=== PATIENT | male | born 2000 | race Two or more races ===

== ENCOUNTER → 2022-04-27 09:59 | Outpatient (BNVA) | payer OTHER, SELFPAY | PROVIDERS: PCP Pediatrics; Visit Provider Physician Assistant Medical | DX: S61.012A Laceration without foreign body of left thumb without damage to nail, initial encounter (principal); W45.8XXA Other foreign body or object entering through skin, initial encounter | CPT/HCPCS: 99203 ==

== ENCOUNTER → 2022-05-05 08:47 | Outpatient (BNVA) | payer OTHER, SELFPAY | PROVIDERS: PCP Pediatrics; Visit Provider Internal Medicine | DX: Z48.02 Encounter for removal of sutures (principal); S61.012D Laceration without foreign body of left thumb without damage to nail, subsequent encounter; W45.8XXD Other foreign body or object entering through skin, subsequent encounter | CPT/HCPCS: 99212; 99213 ==

== ENCOUNTER 2023-11-27 12:11 | Outpatient (REF) | payer OTHER, SELFPAY ==
--- NOTE | ~2023-11-27 | XR_ITS ---
EXAMINATION: XR RIBS, RIGHT CLINICAL INFORMATION: Right-sided rib pain. Intermittent, chronic rib pain. COMPARISON: None available. TECHNIQUE: PA view the chest as well as 3 views of the right ribs. FINDINGS: Lungs are clear. No consolidation, pneumothorax, or pleural effusion. The cardiomediastinal silhouette and pulmonary vasculature are normal. Osseous structures are unremarkable. Ribs are intact. No fractures are identified. XR/XR ribs RT min 3V w CXR1V IMPRESSION: Unremarkable examination.
== END 2023-11-27 12:12 | disposition home or self-care (01) ==
LOC: HO.HHCX 12:11
PROVIDERS: Visit Provider Nurse Practitioner Primary Care
DX: R07.81 Pleurodynia (principal)
CPT/HCPCS: 71101

== ENCOUNTER 2024-10-21 16:20 | Outpatient (REF) | payer OTHER, SELFPAY ==
--- OUTSIDE RECORDS SUMMARY | 2024-10-21 18:48 | XMS_ITS | Encounter Summary ---
Author Organization [facility] Address [address] [facility] 7t [place] [address] Care Team Providers Care Resource Manager Name Role Phone Chacha Rosas Primary Care Provider [phone] Encounter Details Date Type Department Care Team (Late Contact Info) Description 03/15/2023 Abstract [facility] [address] [place] [address] Nikolas Isabel, JOSE MANUEL [address] [place] [address] Social History Tobacco Use Types Packs/Day Years Used Date Smoking Tobacco: Never Smokeless Tobacco: Never Alcohol Use Standard Drinks/Week Comments Never 0 (1 standard drink = 0.6 oz pur e alcohol) Sex and Gender Information Value Date Recorded Sex Assigned at Male 05/01/2022 10:29 AM EDT Legal Sex Male 10:29 AM EDT Gender Identity Male 05/01/2022 10:29 AM EDT Sexual Orientation Straight 05/01/2022 10 :29 AM EDT documented as of this encounter Plan of Treatment Upcoming Encounters Date Type Department Care Team (Late Contact Info) Description 11/06/2024 4:00 PM EDT Immunization [facility] [address] [place] [address] documented as of this encounter Visit Diagnoses Not on filedocumented in this encounter Care Teams Resource Manager Relationship Specialty Start Date End Date Chacha Rosas ANP [address] [place] [address] PCP - General Family Medicine 01/06/22 documented as of this encounter
--- OUTSIDE RECORDS SUMMARY | 2024-10-21 18:48 | XMS_ITS | Encounter Summary ---
Author Organization [employer] Address [address] [facility] [address] 7[address] [place] [address] Care Team Providers Care Sound Recordist Name Role Phone Ralph Chacha SAAVEDRA Primary Care Provider [phone] Encounter Details Date Type Department Care Team (Latest Contact Info) Description 10/21/2024 Travel Social History Tobacco Use Types Packs/Day Years Used Date Smoking Tobacco: Never Smokeless Tobacco: Never Alcohol Use Standard Drinks/Week Comments Never 0 (1 standard drink = 0.6 oz pur e alcohol) Depression Answer Date Recorded Patient Health Questionnaire-9 Score 0 10/21/2024 Patient Health Questionnaire-9 Score 0 10/21/2024 Last PHQ-9: Questionnaire Data Not on file 0 10/21/2024 Housing Stability Answer Date Recorded What is your housing situation today? I have niecy hebert 05/14/[address] you li ve. Do you have problems with any of the following? None of the above 05/14/2024 Food Insecurity Answer Date Recorded Within the past 12 months, y ou worried that your food would run out before you got money to buy more: Never True 05/14/2024 Within the past 12 months,th e food you bought just didn't last and you didn't have enough money to get more: Never True Transportation Answer Date Recorded In the past 12 months, has l ack of transportation kept you from medical appts, meetings, work or from getting things needed for daily living? No 05/14/2024 Utilities Answer Date Recorded In the past 12 months, has t he electric, gas, oil or water company threatened to shut off services in your home? No 05/14/2024 Depression Answer Date Recorded Patient Health Questionnaire-2 Score 0 10/21/2024 Internet Access Answer Date Recorded Internet Access Q1 Yes 05/14/2024 Internet Access Q2 Not on file 05/14/2024 Sex and Gender Information Value Date Recorded Sex Assigned at Male 05/01/2022 10:29 AM EDT Legal Sex Male 10:29 AM EDT Gender Identity Male 05/01/2022 10:29 AM EDT Sexual Orientation Straight 05/01/2022 10 :29 AM EDT documented as of this encounter Plan of Treatment Upcoming Encounters Date Type Department Care Team (Late st Contact Info) Description 11/06/2024 4:00 PM EDT Immunization [facility] [address] [place] [address] documented as of this encounter Visit Diagnoses Not on filedocumented in this encounter Additional Health Concerns Assessment Noted Time PHQ-9 Depression Total Score: 0 10/22/19 25 2:19 PM EDT documented as of this encounter Care Teams Sound Recordist Relationship Specialty Start Date End Date Chacha Rosas ANP [address] [place] [address] PCP - General Family Medicine 01/06/22 documented as of this encounter
--- OUTSIDE RECORDS SUMMARY | 2024-10-21 18:48 | XMS_ITS | Clinical Summary ---
Author Organization [employer] Address [address] [facility] 7t [place] [address] Care Team Providers Care Diabetes Specialist Name Role Phone Ralph Chacha SAAVEDRA Primary Care Provider [phone] Allergies Active Allergy Reactions Criticality Noted Date Comments Shellfish Allergy 01/11/2023 Medications chlorhexidine (Peridex) 0.12 % solutionIndica tions:Pericoro nitis Fill irrigation syringe and irrigate third molars after meals. Spit, do not swallow. 473 mL 01/12/20 23 Active Sod Fluoride-Potas sium Nitrate 1.1-5 % pasteIndicatio ns:Dental caries [place] teeth for 2 minutes, morning and night. Spit, do not rinse. Do not eat or drink anything for 30 minutes following brushing. 112 g 3 02/02/20 23 Active EPINEPHrine (Epipen) 0.3 MG/0.3ML injection syringeIndicat ions:Shellfish allergy Inject 0.3 mL (0.3 mg) as directed 1 (one) time if needed for anaphylaxis. Inject into upper leg. Call 911 after use. 2 each 1 02/06/20 24 025 Active magnesium oxide (Mag-Ox) 400 mg tabletIndicati ons:Nonintract able episodic headache, unspecified headache type,Sleep disturbance Take 1 tablet (400 mg) by mouth Once per day. 90 tablet 1 10/22/19 25 Active aspirin-acetam inophen-caffei ne (Excedrin Migraine) 250-250-65 MG tabletIndicati ons:Nonintract able episodic headache, unspecified headache type Take 1 tablet by mouth every 6 (six) hours if needed for headaches for up to 10 days. 30 tablet 1 10/22/19 25 025 Active ibuprofen 800 MG tabletIndicati ons:Nonintract able episodic headache, unspecified headache type,Pain Take 1 tab as needed up to TID for headache 90 tablet 1 10/22/19 25 Active ibuprofen 600 MG tabletIndicati ons:Pain TAKE 1 TABLET BY MOUTH UP TO THREE TIMES DAILY NEEDED 30 tablet 02/29/20 24 025 Discontinued(Re order (will not trigger notification to Pharmacy)) Active Problems No known active problems Encounters Date Type Department Care Team Description 10/21/2024 2:00 PM EDT Office Visit [facility] MED[facility] [address] [place] [id number] Chacha Rosas ANP Routine screening for STI (sexually transmitted infection) (Primary Dx); Healthcare maintenance; Lipid screening; Nonintractable episodic headache, unspecified headache type; Sleep disturbance; Pain; Atypical chest pain; Elevated blood pressure reading without diagnosis of hypertension 10/21/2024 Travel from Last 3 Months Immunizations Name Administration Dates Next Due DTaP 12/20/2006, 4,07/10/2003,05/02 DTaP, 5 pertussis antigens 03/19/2003 HPV 9-Valent 01/20/2016,03/24/2014 HPV, Unspecified 09/02/2014 Hep A, ped/adol, 2 dose 07/25/2016,01/20/2016 Hep B, Adolescent or Pediatric 10/30/2003,2003,05/02/2003 Hep B, adult 06/05/2024,05/08/2024 HiB, unspecified 04/11/2004,05/02/2003 Hib (PRP-T) 03/19/2009 IPV 12/20/2006, 4,07/10/2003,03/19 Influenza injectable quadriv alent preservative free 04/26/2022,09/17/2020,04/19/2013,06/15 Influenza, seasonal, injecta ble, preservative free 03/12/2024 MMR 12/20/2006,01/07/2004 Meningococcal MCV4P ACYW-135 03/03/2020,03/24/20 14 Pfizer Covid-19 Vaccine 12+ 12/11/2020, Pneumococcal Conjugate PCV 13 07/10/2003, 003,03/19/2003 Rabies - IM Fibroblast Culture 04/25/2024,2023 TD (adult), 2 Lf tetanus tox oid, preservative free, adsorbed 03/24/2014 Tdap 04/26/2022,03/24/2014 Varicella 12/20/2006,01/07/2004 Family History Medical History Relation Name Comments Hypertension Father Glaucoma Paternal Grandmother Relation Name Status Comments Father Paternal Grandmother Social History Tobacco Use Types Packs/Day Years Used Date Smoking Tobacco: Never Smokeless Tobacco: Never Tobacco Cessation:Counseling Given: Not Answered Alcohol Use Standard Drinks/Week Comments Never 0 [...] Orientation Straight 05/01/2022 10 :29 AM EDT Last Filed Vital Signs Vital Sign Reading Time Taken Comments Blood Pressure 124/78 10/21/2024 2:31 PM EDT Pulse 92 10/21/2024 2:18 PM EDT Temperature 36.8 ??C (98.2 ??F) 11/27/2023 10:43 AM E DT Respiratory Rate 20 10/21/2024 2:18 PM EDT Oxygen Saturation - - Inhaled Oxygen Concentration - - Weight 89.4 kg (197 lb) 10/21/2024 2:18 PM EDT Height 172.7 cm (5' 8 ) 10/21/2024 2:18 PM EDT Body Mass Index 29.95 10/21/2024 2:18 PM EDT Plan of Treatment Upcoming Encounters Date Type Department Care Team (Late st Contact Info) Description 11/06/2024 4:00 PM EDT Immunization [facility] [address] [place] [id number] Health Maintenance Due Date Last Done Comments Chlamydia and Gonorrhea Screening 2002 Dental X-Ray: Bitewings 01/25/2024 01/23/2023, 01/25 COVID-19 Vaccine ( season) 2024 09/06/2021, 12/11/2020, 12/11/2020, Additional history exists Dental Oral Exam 03/03/2024 08/31/2023, , 01/26/2016 Dental Prophylaxis 03/03/2024 08/31/2023, 0 01/23/2023, 01/26/2016 SDOH Screening 05/14/2025 05/14/2024 Alcohol/Substance Use Screening 10/21/2025 10/21/2024 Depression Screening 10/21/2025 10/21/2024, 10/22/19 Family Planning (PISQ) 10/21/2025 10/21/2024 Tobacco Screening 10/21/2025 10/21/2024 Dental X-Ray: Full Mouth 01/12/2026 01/11/2023 DTaP/Tdap/Td Vaccines (9 - Td or Tdap) 04/26/2032 04/26/2022, 03/24/2014, 03/24/2014, Additional history exists Zoster Vaccines (1 of 2) 2052 RSV Patients and Patients Aged 60 years or older (1 - 1-dose 75+ series) 2077 Pneumococcal Vaccine: Pediatrics (0 to 5 Years) and At-Risk Patients (6 to 49) Years) Aged Out 07/10/2003, 05/02/2003, 03/19/2003 No longer eligible based on patient's age to complete this topic IPV Vaccines Completed 12/20/2006, 10/02, 07/10/2003, Additional history exists HIB Vaccines Completed 03/19/2009, 04/01, 05/02/2003 HPV Vaccines Completed 01/20/2016, 09/2014, 03/24/2014 Hepatitis A Vaccines Completed 07/25/2016, 01/20/20 16 Meningococcal Vaccine Completed 03/03/2020, 014 HIV Screening Completed 01/26/2022 Hepatitis C Screening Completed 01/26/2022 Influenza Vaccine Completed 03/12/2024, , 09/17/2020, Additional history exists Hepatitis B Vaccines Completed 06/05/2024, 05/08/2024, 10/30/2003, Additional history exists RSV under 20 months Aged Out No longe r eligible based on patient's age to complete this topic Rotavirus Vaccines Aged Out No longer eligible based on patient's age to complete this topic Procedures Procedure Name Priority Date/Time Associated Diagnosis Comments ECG 12-LEAD Routine 10/21/2024 4:07 PM EDT Atypical chest pain Full PROPHYLAXIS - ADULT Routine 08/31/2023 8:00 AM EST PERIODIC ORAL EVALUATION - ESTABLISHED PATIENT Routine 08/31/2023 8:00 AM EST BITEWINGS - 4 RADIOGRAPHIC IMAGES Routine 01/23/2023 8:00 AM EDT Dental caries Encounter for dental examination PANORAMIC RADIOGRAPHIC IMAGE Routine 01/11/2023 9:00 AM EDT Pericoronitis Tooth impaction ZZZ HISTORICAL HEPATITIS C AB W/REFL TO HCV RNA, QN, PCR Routine 01/26/2022 11:14 AM EDT HIV 1/2 ANTIGEN/ANTIBODY, FOURTH GENERATION W/RFL Routine 01/26/2022 11:14 AM EDT from Last 3 Months or Most Recently Relevant to Health Maintenance Results * ECG 12 lead (10/21/2024 4:07 PM EDT) Chacha Black ANP - 10/21/2024 4:07 PM EDT HR 88, QRS 94ms, QT/Qtc 340/389ms, does not meet josselin criteria for LVH Chacha Rosas ANP ECG ORDERABLES Edited Result - Final * HEPATITIS C AB W/REFL TO HCV RNA, QN, PCR (01/26/2022 11:14 AM EDT) HEPATITIS C ANTIBODY NON-REACT PROSPER NON-REACT PROSPER [facility] INDEX 0.09 <1.00 [facility] Comment: ?? HCV antibody was non-reactive. There is no laboratory ?? evidence of HCV infection. ?? In most cases, no further action is required. However, if recent HCV exposure is suspected, a test for HCV RNA (test code 12117) is suggested. ?? For additional information please refer to http://education.Fondu/faq/PRL35y8 (This link is being provided for informational/ educational purposes only.) ?? 01/26/2022 11:1 4 AM EDT Chacha Rosas ANP HISTORICAL/NON ORDERABLE LABS Fi nal Result [facility] [address] * HIV 1/2 ANTIGEN/ANTIBODY,FOURTH GENERATION W/RFL (01/26/2022 11:14 AM EDT) HIV-1/2 ANTIGEN AND ANTIBODIES, 4TH GENERATION W/ REFLEX NON-REACT PROSPER NON-REACT PROSPER [facility] Comment: HIV-1 antigen and HIV-1/HIV-2 antibodies were not detected. There is no laboratory evidence of HIV infection. ?? PLEASE NOTE: This information has been disclosed to you from records whose confidentiality may be protected by state law. ??If your state requires such protection, then the state law prohibits you from making any further disclosure of the information without the specific written consent of the person to whom it pertains, or as otherwise permitted by law. A general authorization for the release of medical or other information is NOT sufficient for this purpose. ? For additional information please refer to http://education.Fondu/faq/HYS611 (This link is being provided for informational/ educational purposes only.) ? The performance of this assay has not been clinically validated in patients less than 2 years old. ?? 01/26/2022 11:1 4 AM EDT [facility] LAB BLOOD ORDERABLES Final Resul t [facility] [address] from Last 3 Months or Most Recently Relevant to Health Maintenance Insurance [facility] PARTIAL (MEDICAID) Care Teams Diabetes Specialist Relationship Specialty Start Date End Date Chacha Rosas ANP [address] [place] [id number] PCP - General Family Medicine 01/06/22
--- OUTSIDE RECORDS SUMMARY | 2024-10-21 18:48 | XMS_ITS | Encounter Summary ---
Author Organization [facility] Address [address] [facility] 7t [place] [address] Care Team Providers Care Spiral Winding Machine Helper Name Role Phone Chacha Rosas Primary Care Provider [phone] Encounter Details Date Type Department Care Team (Late st Contact Info) Description 07/20/2022 Orders Only [facility] [address] [place] [id number] Casandra Boone LPN Social History Tobacco Use Types Packs/Day Years Used Date Smoking Tobacco: Never Assessed Sex and Gender Information Value Date Recorded Sex Assigned at Male 05/01/2022 10:29 AM EDT Legal Sex Male 10:29 AM EDT Gender Identity Male 05/01/2022 10:29 AM EDT Sexual Orientation Straight 05/01/2022 10 :29 AM EDT documented as of this encounter Plan of Treatment Upcoming Encounters Date Type Department Care Team (Late st Contact Info) Description 11/06/2024 4:00 PM EDT Immunization [facility] [address] [place] [id number] documented as of this encounter Visit Diagnoses Not on filedocumented in this encounter Care Teams Spiral Winding Machine Helper Relationship Specialty Start Date End Date Chacha Rosas ANP [address] [place] [id number] PCP - General Family Medicine 01/06/22 documented as of this encounter
--- OUTSIDE RECORDS SUMMARY | 2024-10-21 18:48 | XMS_ITS | Encounter Summary ---
Author Organization [facility] Address [address] [facility] 7t [place] [address] Care Team Providers Care Inspector Aligning Name Role Phone Chacha Rosas Primary Care Provider Encounter Details Date Type Department Care Team ([facility] Contact Info) Description 03/22/2023 Abstract [facility] [address] [place] [address] Nikolas Isabel, JOSE MANUEL [address] [place] [address] Social History Tobacco Use Types Packs/Day Years [...] Info) Description 11/06/2024 4:00 PM EDT Immunization [facility] [address] [place] [address] documented as of this encounter Visit Diagnoses Not on filedocumented in this encounter Care Teams Inspector Aligning Relationship Specialty Start Date End Date Chacha Rosas ANP [address] [place] [address] PCP - General Family Medicine 01/06/22 documented as of this encounter
--- OUTSIDE RECORDS SUMMARY | 2024-10-21 18:48 | XMS_ITS | Encounter Summary ---
Author Organization [employer] Address [address] [facility] [address] [place] [address] Care Team Providers Care Assistant Warehouse Manager Name Role Phone Chacha oRsas Primary Care Provider [phone] Reason for Visit * Reason Comments Follow-up Encounter Details Date Type Department Care Team ([facility] Contact Info) Description 10/21/2024 2:00 PM EDT Office Visit [facility] [address] [place] [address] Chacha Rosas ANP [address] [place] [address] Routine screening for STI (sexually transmitted infection) (Primary Dx); Healthcare maintenance; Lipid screening; Nonintractable episodic headache, unspecified headache type; Sleep disturbance; Pain; Atypical chest pain; Elevated blood pressure reading without diagnosis of hypertension Social History Tobacco Use Types Packs/Day Years [...] AM EDT documented as of this encounter Last Filed Vital Signs Vital Sign Reading Time Taken Comments Blood Pressure 124/78 10/21/2024 2:31 PM EDT Pulse 92 10/21/2024 2:18 PM EDT Temperature - - Respiratory Rate 20 10/21/2024 2:18 PM EDT Oxygen Saturation - - Inhaled Oxygen Concentration - - Weight 89.4 kg (197 lb) 10/21/2024 2:18 PM EDT Height 172.7 cm (5' 8 ) 10/21/2024 2:18 PM EDT Body Mass Index 29.95 10/21/2024 2:18 PM EDT documented in this encounter Progress Notes * KERI Gamble - 10/21/2024 2:00 PM EDT Images from the original note were not included. Subjective Patient ID: Blaine Vinson is a 23 y.o. male who presents for Follow-up. HPI BP Readings from Last 5 Encounters: 10/21/24 124/78 11/27/23 130/70 08/31/23 116/68 08/02/23 140/80 06/07/23 110/80 Has small pinching sensation in mid chest, happens randomly, not worse w/ exercise. Happens inconsistently, has weeks when it does happen every day and others when it doesn't happen at all. Can last for 30min, dull or sharp. Not worse w/ exertion. Resolves on its own. Still have frequent MENDOZA. Tried riboflavin in past w/o effect. Having HAs that take whole head, gets 3d/wk. +photophobia, no nausea, no dizziness. No visual sx. Does have h/o migraine. Does think is worse w/ stress. Not sleeping well. Waking up to small noises in house, but also sleeps through alarms. Waking up at2am often and can't fall back to sleep. Non-smoker Cycles, hikes, very active. 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 Works here as well as [employer]. Has humanities teacher GF, using condoms (latex free) Dad is Preet, also my pt. Review of Systems Constitutional: Negative for chills and fever. HENT: Negative for sore throat. Respiratory: Negative for cough and shortness of breath. Cardiovascular: Negative for chest pain. Gastrointestinal: Negative for constipation and diarrhea. Endocrine: Negative for polydipsia, polyphagia and polyuria. Genitourinary: Negative for dysuria. Neurological: Negative for weakness. Objective BP 124/78 (BP Location: Right arm, Patient Position: Sitting, BP Cuff Size: Large adult) Pulse 92 Resp 20 Ht 5' 8 (1.727 m) Wt 197 lb (89.4 kg) BMI 29.95 kg/m?? Physical Exam Vitals reviewed. Constitutional: General: He is not in acute distress. Appearance: Normal appearance. He is not ill-appearing. HENT: Head: Normocephalic and atraumatic. Right Ear: Tympanic membrane, ear canal and external ear normal. There is no impacted cerumen. Left Ear: Tympanic membrane, ear canal and external ear normal. There is no impacted cerumen. Nose: No congestion. Eyes: General: No scleral icterus. Extraocular Movements: Extraocular movements intact. Pupils: Pupils are equal, round, and reactive to light. Cardiovascular: Rate and Rhythm: Normal rate and regular rhythm. Pulmonary: Effort: Pulmonary effort is normal. No accessory muscle usage or respiratory distress. Breath sounds: Normal breath sounds. Abdominal: General: Bowel sounds are normal. Comments: Mild tenderness w/ palpation area above Musculoskeletal: Comments: No tenderness w palpation of chest wall Skin: General: Skin is warm and dry. Capillary Refill: Capillary refill takes less than 2 seconds. Neurological: Mental Status: He is alert and oriented to person, place, and time. Cranial Nerves: No cranial nerve deficit. Gait: Gait normal. Psychiatric: Mood and Affect: Mood normal. Behavior: Behavior normal. Encounter Date: 10/21/24 ECG 12 lead Narrative HR 88, QRS 94ms, QT/Qtc 340/389ms, does not meet josslein criteria for LVH Assessment/Plan Diagnoses and all orders for this visit: Elevated BP Improved on repeat Routine screening for STI (sexually transmitted infection) - HIV-1/2 Antigen and Antibodies, Fourth Generation, with Reflexes; Future - Chlamydia/N. Gonorrhoeae RNA, TMA, Urogenitial - RPR (Monitor) with Reflex to Titer; Future Healthcare maintenance - CBC auto differential; Future Lipid screening - Lipid Panel, Standard; Future Nonintractable episodic headache, unspecified headache type - magnesium oxide (Mag-Ox) 400 mg tablet; Take 1 tablet (400 mg) by mouth Once per day. - jrvswpe-qfjfxklwuigpx-adpxfbjr (Excedrin Migraine) 250-250-65 MG tablet; Take 1 tablet by mouth every 6 (six) hours if needed for headaches for up to 10 days. - ibuprofen 800 MG tablet; Take 1 tab as needed up to TID for headache Sleep disturbance Sleep hygiene reviewed in detail: turn off screens within a few hours of bedtime, no etoh b/f bed, separate cigarette smoking as much as possible from bedtime, get regular exercise - magnesium oxide (Mag-Ox) 400 mg tablet; Take 1 tablet (400 mg) by mouth Once per day. Pain - ibuprofen 800 MG tablet; Take 1 tab as needed up to TID for headache Atypical chest pain EKG w/o ischemic findings, suspect d/t stress/anxiety. Reviewed w/ pt stress reduction techniques. He is working 2 jobs and going to school, not sleeping enough at present. - ECG 12 lead documented in this encounter Plan of Treatment Upcoming Encounters Date Type Department Care Team (Late st Contact Info) Description 11/06/2024 4:00 PM EDT Immunization [facility] [address] [place] [address] Scheduled Orders Name Type Priority Associated Diagnoses Orde r Schedule HIV-1/2 Antigen and Antibodies, Fourth Generation, with Reflexes Lab Routine Routine screening for STI (sexually transmitted infection) Expected: 10/21/2024 (Approximate), Expires: 10/21/2025 Chlamydia/N. Gonorrhoeae RNA, TMA, Urogenitial Microbiology Routine Routine screening for STI (sexually transmitted infection) Ordered: 10/21/2024 RPR (Monitor) with Reflex to??Titer Lab Routine Routine screening for STI (sexually transmitted infection) Expected: 10/21/2024 (Approximate), Expires: 10/21/2025 CBC auto differential Lab Routine Healthcare maintenance Expected: 10/21/2024 (Approximate), Expires: 10/21/2025 Lipid Panel, Standard Lab Routine Lipid screening Expected: 10/21/2024 (Approximate), Expires: 10/21/2025 documented as of this encounter Procedures Procedure Name Priority Date/Time Associated Diagnosis Comments ECG 12-LEAD Routine 10/21/2024 4:07 PM EDT Atypical chest pain documented in this encounter Results * ECG 12 lead (10/21/2024 4:07 PM EDT) Narrative Chacha Rosas ANP - 10/21/2024 4:07 PM EDT HR 88, QRS 94ms, QT/Qtc 340/389ms, does not meet josselin criteria for LVH Chacha SAAVEDRA ECG ORDERABLES Edited Result - Final documented in this encounter Visit Diagnoses Diagnosis Routine screening for STI (sexually transmitted infection)- Primary Screening examination for venereal disease Healthcare maintenance Lipid screening Screening for lipoid disorders Nonintractable episodic headache, unspecified headache type Sleep disturbance Unspecified sleep disturbance Pain Generalized pain Atypical chest pain Other chest pain Elevated blood pressure reading without diagnosis of hypertension documented in this encounter Additional Health Concerns Assessment Noted Time PHQ-9 Depression Total Score: 0 10/22/19 25 2:19 PM EDT documented as of this encounter Care Teams Assistant Warehouse Manager Relationship Specialty Start Date End Date Chacha Rosas ANP [address] [place] [address] PCP - General Family Medicine 01/06/22 documented as of this encounter
[2024-10-22 10:37] LABS: CT PCR NOT DETECTED (Not Detect.); NG PCR NOT DETECTED (Not Detect.)
== END 2024-10-21 16:21 | disposition home or self-care (01) ==
LOC: HO.HHCLNP 16:20
PROVIDERS: Visit Provider Nurse Practitioner Primary Care
DX: Z00.00 Encounter for general adult medical examination without abnormal findings (principal)
CPT/HCPCS: 87491; 87591

== ENCOUNTER 2025-01-27 10:17 | Outpatient (REF) | payer OTHER, SELFPAY ==
--- OUTSIDE RECORDS SUMMARY | 2025-01-27 11:15 | XMS_ITS | Encounter Summary ---
Author Organization [employer] Address [address] [place] [address] Care Team Providers Care Java Developer Name Role Phone Chacha Rosas ANP Primary Care Provider [phone] Chacha Rosas ANP Primary Care Provider [phone] Encounter Details Date Type Department Care Team ([facility] st Contact Info) Description 07/20/2022 Orders Only [facility] [address] [place] [phone] Casandra Boone LPN Social History Tobacco Use Types Packs/Day Years Used Date Smoking Tobacco: Never Assessed Sex and Gender Information Value Date Recorded Sex Assigned at Male 05/01/2022 10:29 AM EDT Legal Sex Male 10:29 AM EDT Gender Identity Male 05/01/2022 10:29 AM EDT Sexual Orientation Straight 05/01/2022 10 :29 AM EDT documented as of this encounter Plan of Treatment Not on file documented as of this encounter Visit Diagnoses Not on filedocumented in this encounter Care Teams Java Developer Relationship Specialty Start Date End Date Chacha Rosas ANP [address] [place] [phone] PCP - General Family Medicine 01/06/22 11/03/24 Chacha Rosas ANP [address] [place] [phone] PCP - General Family Medicine 11/04/24 documented as of this encounter
[2025-01-27 11:24] LABS: MANUAL DIFF FLAG NO
[2025-01-27 11:29] LABS: Hematocrit 51.2 % (42.0-52.0); Hemoglobin 17.1 g/dl (14.0-18.0); Imm Gran Abs Auto 0.05 X10*3/uL (0.00-0.03); Imm Gran Pct Auto 0.6 % (0.0-0.4); Lymphocytes Absolute Auto 2.2 X10*3/uL (1.2-4.9); Mean Corpuscular HGB Conc 33.4 g/dl (31.0-36.0); Mean Corpuscular Hemoglobin 28.6 pg (27.0-33.0); Mean Corpuscular Volume 85.6 fL (80.0-98.0); NRBC Abs Auto 0.000 X10*3/uL (0.0-0.012); NRBC Pct Auto 0.0 /100WBC (0.0-0.2); Platelet Count 237 X10*3/uL (160-400); Red Blood Count 5.98 X10*6/uL (4.60-5.80); White Blood Count 7.7 X10*3/uL (4.8-10.8)
[2025-01-27 11:52] LABS: Cholesterol 190 mg/dL (<200); HDL Cholesterol 46 mg/dL (>40); Triglycerides 156 mg/dL (<150)
[2025-01-27 12:05] LABS: HIV Num 1 0.05 S/CO (0.00-0.99)
== END 2025-01-27 10:18 | disposition home or self-care (01) ==
LOC: HO.HHCL 10:17
PROVIDERS: PCP Nurse Practitioner Primary Care; Visit Provider Nurse Practitioner Primary Care
DX: Z00.00 Encounter for general adult medical examination without abnormal findings (principal); Z11.3 Encounter for screening for infections with a predominantly sexual mode of transmission; Z13.220 Encounter for screening for lipoid disorders; Z11.4 Encounter for screening for human immunodeficiency virus [HIV]
CPT/HCPCS: 36415; 80061; 85025; 86592; 87389